=== PATIENT | female | born 1975 | race Caucasian/White ===

== ENCOUNTER → 2017-08-31 | Outpatient (CLI) | payer OTHER ==
[~2017-08-31] MED LIST: CETI10TA24 PO; IBUP200T64 PO
[2017-08-31 15:35] LABS: HCG UR SG 1.014 (1.003-1.030); MICROSCOPIC NOT IND
[2017-08-31 15:36] LABS: BASOPHILS # (AUTO) 0.06 x10^3/uL (0-0.1); BASOPHILS % (AUTO) 1 % (0-1); EOSINOPHILS # (AUTO) 0.57 x10^3/uL (0-0.4); EOSINOPHILS % (AUTO) 7 % (1-7); LYMPHOCYTES # (AUTO) 2.17 x10^3/uL (1-3.4); LYMPHOCYTES % (AUTO) 28 % (22-44); MD NO; MEAN CORPUSCULAR HGB CONC 33.9 g/dL (32.4-35.8); MEAN CORPUSCULAR VOLUME 88.6 fL (80-100); MONOCYTES # (AUTO) 0.58 x10^3/uL (0.2-0.8); MONOCYTES % (AUTO) 8 % (2-9); NEUTROPHILS # (AUTO) 4.33 x10^3/uL (1.8-6.8); NEUTROPHILS % (AUTO) 56 % (42-75); PLATELET COUNT 312 x10^3/uL (130-400); RED CELL DISTRIBUTION WIDTH 13.6 % (9.6-15.2)
[2017-08-31 15:45] LABS: CULTURE INDICATED? NO
== END | disposition home or self-care (01) ==
LOC: MERGE 14:30 → STAR 14:41
PROVIDERS: ATTEND Obstetrics & Gynecology
DX: Z01.818 Encounter for other preprocedural examination (principal); Z97.5 Presence of (intrauterine) contraceptive device
CPT/HCPCS: 36415; 81003; 81025; 85025

== ENCOUNTER 2017-09-14 05:13 | Day surgery (SDC) | payer OTHER ==
[~2017-09-14] VITALS: Ht 167.6 cm; Wt 111.1 kg
[2017-09-14] MEDS ORDERED: LACTATED RINGERS 1,000 ML IV SCH (05:55)
[2017-09-14] MEDS ORDERED: ACETAMINOPHEN 500 MG TABLET PO ONE (06:00)
[2017-09-14] MEDS ORDERED: OxyconTIN ER 20 MG TAB.ER PO ONE (06:00)
[2017-09-14 06:04] VITALS: BP 123/86
[2017-09-14] MEDS ORDERED: TRAZ50TA18 PO (06:04)
[2017-09-14] MEDS ORDERED: SILVER NITRATE STICK TP ONE (06:28)
[2017-09-14 06:35] LABS: HCG UR SG 1.021 (1.003-1.030)
[2017-09-14] MEDS ORDERED: MIDAZOLAM 1 MG/ML, 2ML ONE (06:53)
[2017-09-14] MEDS ORDERED: FENTANYL PF 100 MCG/2ML ONE (06:53)
[2017-09-14] MEDS ORDERED: ONDANSETRON 2MG/ML, 2ML ONE ×2 (07:09→07:10)
[2017-09-14] MEDS ORDERED: DEXAMETHASONE 4 MG/ML, 1ML ONE (07:09)
[2017-09-14] MEDS ORDERED: KETOROLAC 30 MG/1 ML ONE (07:09)
[2017-09-14] MEDS ORDERED: PROPOFOL 10 MG/ML, 20ML ONE (07:09)
[2017-09-14] MEDS ORDERED: CEFAZOLIN 1,000 MG ONE (07:09)
[2017-09-14] MEDS ORDERED: MORPHINE SULFATE 4 MG/ML, 1ML IVPush PRN (07:30)
[2017-09-14] MEDS ORDERED: PROMETHAZINE 25 MG/ML, 1ML IV PRN (07:30)
[2017-09-14] MEDS ORDERED: MIDAZOLAM 1 MG/ML, 2ML IV PRN (07:30)
[2017-09-14] MEDS ORDERED: SCOPOLAMINE PATCH, 1.5MG PATCH.TD72 TD PRN (07:30)
[2017-09-14] MEDS ORDERED: MEPERIDINE/PF 25MG/0.5ML IVPush PRN (07:30)
[2017-09-14] MEDS ORDERED: PROMETHAZINE 25 MG SUPP PR PRN (07:30)
[2017-09-14] MEDS ORDERED: FENTANYL PF 100 MCG/2ML IV PRN (07:30)
[2017-09-14] MEDS ORDERED: LABETALOL 5MG/ML, 20ML IV PRN (07:30)
[2017-09-14] MEDS ORDERED: ALBUTEROL/IPRATROPIUM 2.5MG/0.5MG, 3 ML NPPB PRN (07:30)
[2017-09-14] MEDS ORDERED: HYDROmorphone 1 MG/ML, 1ML IV PRN (07:30)
[2017-09-14] MEDS ORDERED: OXYcodone 5 MG/5 ML ORAL.SOL UDC PO PRN (07:30)
[2017-09-14] MEDS ORDERED: LIDOCAINE GEL 2%, 5ML ONE (08:04)
== END 2017-09-14 10:10 ==
LOC: OUT 05:13 → MERGE 07:00 → OUT 10:10
PROVIDERS: ATTEND Obstetrics & Gynecology
DX: Z30.433 Encounter for removal and reinsertion of intrauterine contraceptive device (principal); N84.0 Polyp of corpus uteri; K21.9 Gastro-esophageal reflux disease without esophagitis
CPT/HCPCS: 36415; 58300; 58558; 81025; 86850; 86900; 88305; J0690; J1100; J1885; J2250; J2405; J2704; J3010; J7120

== ENCOUNTER → 2017-09-29 | Outpatient (CLI) | payer OTHER ==
[~2017-09-29] MED LIST changes: +TRAZ50TA18 PO
== END | disposition home or self-care (01) ==
LOC: CFH 09:25
PROVIDERS: ATTEND Obstetrics & Gynecology
DX: Z12.31 Encounter for screening mammogram for malignant neoplasm of breast (principal)
CPT/HCPCS: 77063; 77067